=== PATIENT | female | born 1960 | race Caucasian/White ===

== ENCOUNTER 2020-12-12 12:43 | Outpatient (CLI) | payer OTHER | END 2020-12-12 23:59 | disposition home or self-care (01) | LOC: LAB.N 12:43 | PROVIDERS: ATTEND Family Medicine | DX: R39.9 Unspecified symptoms and signs involving the genitourinary system (principal) | CPT/HCPCS: 87086 ==

== ENCOUNTER 2021-01-13 09:45 | Outpatient (CLI) | payer OTHER | END 2021-01-13 23:59 | LOC: LAB.N 09:45 | PROVIDERS: ATTEND Family Medicine | DX: R39.9 Unspecified symptoms and signs involving the genitourinary system (principal) | CPT/HCPCS: 87086; 87181 ==

== ENCOUNTER 2021-05-11 12:22 | Emergency (ER) | payer OTHER ==
[2021-05-11] MEDS ORDERED: SODIUM CHLORIDE 0.9% 1,000 ML IV STA ×2 (12:52→13:53)
--- NOTE | 2021-05-11 12:54 | ED Physician Documentation ---
PD HPI NVD - Stated complaint Stated Complaint: RAPID HEART RATE - Chief complaint Chief Complaint: Cardiac - History obtained from History obtained from: Patient - History of Present Illness Timing - onset: Last night Timing - duration: Hours Timing - details: Gradual onset, Still present Associated symptoms: Abdominal pain, Near syncope / syncope Contributing factors: Bad food Improved by: BM Similar symptoms before: Has not had sx before Recently seen: Not recently seen - Additonal information Additional information: 61-year-old female with a history of frequent urinary tract infections has developed a feeling of illness yesterday afternoon and despite preparing a nice meal she did not feel like eating. She subsequently developed some nausea without vomiting and then she tried to drink a protein shake and she began to have severe diarrhea. She has had diarrhea all night long. She is feeling like she might pass out. She has come to the emerge department for evaluation. She has been on a course of antibiotic within the past 2 months. She states that she has had Ishmael and had been on extended course of antibiotic in March. She was on Cipro. Review of Systems Constitutional: denies: Fever Eyes: denies: Decreased vision Ears: denies: Ear pain Nose: denies: Congestion Throat: denies: Sore throat Cardiac: denies: Chest pain / pressure, Palpitations Respiratory: denies: Dyspnea, Cough GI: reports: Abdominal Pain, Nausea, Diarrhea. denies: Vomiting : denies: Dysuria, Frequency PD PAST MEDICAL HISTORY - Present Medications Home Medications: Ambulatory Orders Medication Instructions Recorded Confirmed Ondansetron Odt [Zofran] 4 mg TL Q6H PRN #10 tablet 05/11/21 - Allergies Allergies/Adverse Reactions: Allergies Allergy/AdvReac Type Severity Reaction Status Date / Time Penicillins Allergy Emesis Verified 05/11/21 12:30 PD ED PE NORMAL - Vitals Vital signs reviewed: Yes (hypertensive) - General General: Alert and oriented X 3, No acute distress, Well developed/nourished - HEENT HEENT: Atraumatic, PERRL, EOMI - Neck Neck: Supple, no meningeal sign, No bony TTP - Cardiac Cardiac: RRR, No murmur - Respiratory Respiratory: No respiratory distress, Clear bilaterally - Abdomen Abdomen: Normal bowel sounds, Soft, Non distended, No organomegaly, Other (RUQ and epigastric tenderness to palpation without garding. 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, No motor deficit, No sensory deficit, Normal speech Eye Opening: Spontaneous Motor: Obeys Commands Verbal: Oriented GCS Score: 15 - Psych Psych: Normal mood, Normal affect Results - Vitals Vitals: Vital Signs - 24 hr 05/11/21 05/11/21 05/11/21 12:26 14:30 15:36 Temperature 36.4 C L Heart Rate 97 64 61 Respiratory 22 17 16 Rate Blood Pressure 133/104 H 151/67 H 113/71 O2 Saturation 100 100 97 Oxygen O2 Source Room air - EKG (time done) 1241 Rate: Rate (enter#) (77) Rhythm: NSR, Other (PVC's) Ischemia: Normal ST segments Compare to prior EKG: Old EKG unavailable Computer interpretation: Agree with computer - Labs Labs: Laboratory Tests 05/11/21 05/11/21 05/11/21 12:59 13:00 13:09 WBC 6.9 RBC 5.16 Hgb 16.5 H Hct 46.9 MCV 90.9 MCH 32.0 H MCHC 35.2 RDW 13.1 Plt Count 265 MPV 9.2 Neut # (Auto) 3.6 Lymph # (Auto) 2.4 [place] # (Auto) 0.8 Eos # (Auto) 0.1 Baso # (Auto) 0.0 Absolute Nucleated RBC 0.00 Nucleated RBC % 0.0 Sodium 134 L Potassium 3.7 Chloride 97 L Carbon Dioxide 23 Anion Gap 14.0 H BUN 23 H Creatinine 1.0 Estimated GFR (MDRD) 56 L Glucose 104 H Calcium 9.4 Total Bilirubin 1.1 H AST 24 ALT 20 Alkaline Phosphatase 66 Total Protein 8.2 Albumin 4.6 Globulin 3.6 Albumin/Globulin Ratio 1.3 Lipase 37 Urine Color DARK YELLOW Urine Clarity HAZY Urine pH 5.5 Ur Specific [place] 1.025 Urine Protein 30 H Urine Glucose (UA) NEGATIVE Urine Ketones 15 H Urine Occult Blood MODERATE H Urine Nitrite NEGATIVE Urine Bilirubin NEGATIVE Urine Urobilinogen 0.2 (NORMAL) Ur Leukocyte Esterase SMALL H Urine RBC 0-5 Urine WBC 11-25 H Urine WBC Clumps PRESENT Ur Squamous Epith Cells FEW Squamous Urine Bacteria Few Ur Microscopic Review INDICATED Urine Culture Comments INDICATED Stl C. diff Tox B Gene 05/11/21 15:44 WBC RBC Hgb Hct MCV MCH MCHC RDW Plt Count MPV Neut # (Auto) Lymph # (Auto) [place] # (Auto) Eos # (Auto) Baso # (Auto) Absolute Nucleated RBC Nucleated RBC % Sodium Potassium Chloride Carbon Dioxide Anion Gap BUN Creatinine Estimated GFR (MDRD) Glucose Calcium Total Bilirubin AST ALT Alkaline Phosphatase Total Protein Albumin Globulin Albumin/Globulin Ratio Lipase Urine Color Urine Clarity Urine pH Ur Specific [place] Urine Protein Urine Glucose (UA) Urine Ketones Urine Occult Blood Urine Nitrite Urine Bilirubin Urine Urobilinogen Ur Leukocyte Esterase Urine RBC Urine WBC Urine WBC Clumps Ur Squamous Epith Cells Urine Bacteria Ur Microscopic Review Urine Culture Comments Stl C. diff Tox B Gene NEGATIVE Procedures - IVC sono (time) 1248 Bedside IVC sono: IVC measures (cm) (0.8), Dehydration (est 2-3 liter deficit) PD MEDICAL DECISION MAKING - ED course Complexity details: reviewed old records, reviewed results, re-evaluated patient, considered differential, d/w patient ED course: 61-year-old female has developed an acute gastroenteritis with excessive diarrhea has been on a course of antibiotic with the past 2 months and she has nonbloody diarrhea. She was unable to produce a specimen here in the emergency department. I did discuss with the patient the possibility of C. difficile and she will provide a specimen when she is able. She did have pyuria today but states that she does not have her typical symptoms of bladder infection which she states are very recognizable to her. For this reason we have not treated. She was administered intravenous saline with marked improvement she felt further improvement with the use of Zofran. Departure - Departure Disposition: 01 Home, Self Care Clinical Impression: Gastroenteritis, Dehydration Condition: Stable Instructions: ED Dehydration, ED Gastroenteritis Vs Food Poison Follow-Up: ALEXIS DE JESUS ARNP [Primary Care Provider] - Prescriptions: Ondansetron Odt [Zofran] 4 mg TL Q6H PRN #10 tablet PRN Reason: Nausea / Vomiting Comments: Urvashi today it looks like you have an acute gastroenteritis and this may be related to a food poisoning or irritation from specific food. If you continue to have diarrhea please obtain a specimen to bring to the lab. Today on your urinalysis there are some white blood cells in the urine and this will be cultured. Because you are not having symptoms we are not going to treat today with antibiotic. If you develop symptoms follow-up immediately with your primary care doctor for treatment. I have E scribed a prescription for Zofran to the community pharmacy here in [place]. Discharge Date/Time: 05/11/21 15:49
[2021-05-11 12:59] LABS: BASOPHILS % (AUTO) 0.3 %; EOSINOPHILS # (AUTO) 0.1 10^3/uL (0.0-0.7); EOSINOPHILS % (AUTO) 1.5 %; HCT - HEMATOCRIT 46.9 % (37.0-47.0); HGB - HEMOGLOBIN 16.5 g/dL (12.0-16.0); LYMPHOCYTES # (AUTO) 2.4 10^3/uL (1.5-3.5); LYMPHOCYTES % (AUTO) 34.5 %; MEAN CORPUSCULAR HGB CONC 35.2 g/dL (32.0-36.0); MEAN CORPUSCULAR VOLUME 90.9 fL (81.0-99.0); MEAN PLATELET VOLUME 9.2 fL (7.9-10.8); MONOCYTES # (AUTO) 0.8 10^3/uL (0.0-1.0); MONOCYTES % (AUTO) 11.6 %; NEUTROPHILS # (AUTO) 3.6 10^3/uL (1.5-6.6); NEUTROPHILS % (AUTO) 51.8 %; PLT - PLATELET COUNT 265 10^3/uL (130-450); RED BLOOD COUNT 5.16 10^6/uL (4.20-5.40); RED CELL DISTRIBUTION WIDTH 13.1 % (12.0-15.0); WHITE BLOOD COUNT 6.9 x10^3/uL (4.8-10.8)
[2021-05-11] MEDS ORDERED: ONDANSETRON 4 MG/2 ML VIAL IVP STA (13:07)
[2021-05-11] MEDS ORDERED: MORPHINE 2 MG/ML CARPUJECT IVP STA (13:07)
[2021-05-11 13:09] LABS: ALBUMIN 4.6 g/dL (3.2-5.5); ALBUMIN/GLOBULIN RATIO 1.3 (1.0-2.2); BILIRUBIN,TOTAL 1.1 mg/dL (0.2-1.0); CALCIUM 9.4 mg/dL (8.5-10.3); POTASSIUM 3.7 mmol/L (3.5-5.0); TOTAL PROTEIN 8.2 g/dL (6.7-8.2)
[2021-05-11 13:14] LABS: BILIRUBIN,URINE NEGATIVE (NEGATIVE); GLUCOSE, URINE (UA) NEGATIVE (NEGATIVE); KETONES,URINE (UA) 15 mg/dL (NEGATIVE); LEUKOCYTE ESTERASE, URINE SMALL (NEGATIVE); NITRITE,URINE NEGATIVE (NEGATIVE); OCCULT BLOOD,URINE MODERATE (NEGATIVE); PH,URINE 5.5 PH (5.0-7.5); PROTEIN,URINE 30 mg/dL (NEGATIVE); UROBILINOGEN,URINE 0.2 (NORMAL) E.U./dL (NORMAL)
[2021-05-11 13:16] LABS: CLARITY,URINE HAZY (CLEAR)
[2021-05-11 13:18] LABS: BACTERIA,URINE Few /HPF (None Seen); RBC,URINE 0-5 /HPF (0-5); SQUAMOUS EPITHELIAL CELL,UR FEW Squamous (<= Few); WBC CLUMPS,URINE PRESENT
[2021-05-11 15:37] VITALS: BP 113/71
[2021-05-11] MEDS ORDERED: ONDANSETRON ODT 4 MG TABLET TL STA (15:41)
== END 2021-05-11 15:49 | disposition home or self-care (01) ==
LOC: ED 12:22
DX: K52.9 Noninfective gastroenteritis and colitis, unspecified (principal); E86.0 Dehydration
CPT/HCPCS: 36415; 80053; 81001; 81599; 83690; 85025; 87086; 87493; 93005; 96361; 96374; 96375; 99283; 99284; Q0162; 81003; 87045; 87046; 87077; 87181

== ENCOUNTER 2021-05-16 15:04 | Emergency (ER) | payer OTHER ==
[2021-05-16] MEDS ORDERED: SODIUM CHLORIDE 0.9% 1,000 ML IV STA (15:35)
[2021-05-16] MEDS ORDERED: ONDANSETRON 4 MG/2 ML VIAL IVP STA (15:35)
[2021-05-16] MEDS ORDERED: LORazepam 2 MG/ML VIAL IVP STA (15:35)
[2021-05-16] MEDS ORDERED: CIPROFLOXACIN 400 MG/200 ML 400 MG/200 ML BAG IV STA (15:37)
--- NOTE | 2021-05-16 15:38 | ED Physician Documentation ---
History of Present Illness - Stated complaint Stated Complaint: UNABLE TO EAT - Chief complaint Chief Complaint: General - History obtained from History obtained from: Patient - Additonal information Additional information: 61-year-old woman with anxiety related to perioperative cardiac arrests when she had her hysterectomy, history of gallbladder disease has been sick for 8 days. Started with severe abdominal pain and diarrhea. She also has nausea with one episode of vomiting a few days ago. The diarrhea is persistent and the nausea is persistent. She is unable to eat or drink. 10 pound weight loss. 100.8 temperature on the day of outset, no fever since. Review of Systems Ten Systems: 10 systems reviewed and negative Constitutional: reports: Fever (gone) GI: reports: Abdominal Pain, Nausea, Vomiting, Diarrhea. denies: Hematemesis, Bloody / black stool PD PAST MEDICAL HISTORY - Present Medications Home Medications: Ambulatory Orders Medication Instructions Recorded Confirmed Ondansetron Odt [Zofran] 4 mg TL Q6H PRN #10 tablet 05/11/21 Ciprofloxacin HCl [Cipro] 500 mg PO BID #20 tablet 05/16/21 Loperamide [Imodium] 2 mg PO QID PRN #10 cap 05/16/21 Metoclopramide [Reglan] 10 mg PO Q6H PRN #20 tablet 05/16/21 - Allergies Allergies/Adverse Reactions: Allergies Allergy/AdvReac Type Severity Reaction Status Date / Time Penicillins Allergy Emesis Verified 05/16/21 15:08 PD ED PE NORMAL - Vitals Vital signs reviewed: Yes - General General: Alert and oriented X 3, No acute distress - HEENT HEENT: PERRL, EOMI - Neck Neck: Supple, no meningeal sign, No bony TTP - Cardiac Cardiac: RRR, No murmur - Respiratory Respiratory: No respiratory distress, Clear bilaterally - Abdomen Abdomen: Soft, Other (Hyperactive bowel tones, soft and nontender) - Back Back: No CVA TTP, No spinal TTP - Derm Derm: Normal color, Warm and dry - Extremities Extremities: No edema, No calf tenderness / cord - Neuro Neuro: Alert and oriented X 3, Normal speech Results - Vitals Vitals: Vital Signs - 24 hr 05/16/21 05/16/21 15:08 17:12 Temperature 36.5 C 36.6 C Heart Rate 110 H 67 Respiratory 20 18 Rate Blood Pressure 126/92 H 106/58 L O2 Saturation 100 100 Oxygen O2 Source Room air - Labs Labs: Laboratory Tests 05/16/21 05/16/21 05/16/21 15:48 15:48 16:01 WBC 9.2 RBC 4.83 Hgb 15.2 Hct 43.4 MCV 89.9 MCH 31.5 H MCHC 35.0 RDW 12.9 Plt Count 374 MPV 8.8 Neut # (Auto) 5.6 Lymph # (Auto) 2.7 [place] # (Auto) 0.8 Eos # (Auto) 0.1 Baso # (Auto) 0.0 Absolute Nucleated RBC 0.00 Nucleated RBC % 0.0 VBG pH 7.456 H VBG pCO2 33.1 L VBG pO2 32.9 VBG HCO3 22.8 L VBG Total CO2 23.8 L VBG O2 Saturation 72.3 VBG Base Excess -0.2 Sodium 136 Potassium 3.5 Chloride 99 L Carbon Dioxide 26 Anion Gap 11.0 BUN 10 Creatinine 1.0 Estimated GFR (MDRD) 56 L Glucose 109 H Calcium 9.2 Magnesium 1.8 Total Bilirubin 0.9 AST 19 ALT 15 Alkaline Phosphatase 56 Total Protein 7.1 Albumin 4.1 Globulin 3.0 Albumin/Globulin Ratio 1.4 Lipase 33 - Rads (name of study) CT A/P Radiology: EMP read contemporaneously (Distal small bowel anhancement c/w w ileus or enteritis. Nonobstructing R neprolithiasis.) PD MEDICAL DECISION MAKING - ED course ED course: 61-year-old woman with persistent diarrhea and nausea, fever on the first day but not since. Nontender exam. Work-up here demonstrates grossly normal blood work, CT showing enteritis. Has a known Enterococcus UTI now symptomatic and treated with Cipro after looking out sensitivities. Passed an oral challenge after above interventions. Departure - Departure Disposition: 01 Home, Self Care Clinical Impression: Dehydration, Enteritis Condition: Good Record reviewed to determine appropriate education?: Yes Instructions: ED Gastroenteritis Bacterial Prescriptions: Ciprofloxacin HCl [Cipro] 500 mg PO BID #20 tablet Loperamide [Imodium] 2 mg PO QID PRN #10 cap PRN Reason: Diarrhea Metoclopramide [Reglan] 10 mg PO Q6H PRN #20 tablet PRN Reason: nausea or headache Comments: I sent your prescriptions to [facility] at [address] Return if not better in 48 to 72 hours, anytime if worsening.
[2021-05-16 16:00] LABS: VBG BASE EXCESS -0.2 mmol/L (-2 - +2); VBG HCO3 22.8 mmol/L (23-28); VBG OXYGEN SATURATION 72.3 % (60-80); VBG PCO2 33.1 mmHg (41-51); VBG PH 7.456 (7.31-7.41); VBG PO2 32.9 mmHg (25-47); VBG TOTAL CO2 23.8 mmol/L (24-29)
[2021-05-16 16:08] LABS: ALBUMIN 4.1 g/dL (3.2-5.5); ALBUMIN/GLOBULIN RATIO 1.4 (1.0-2.2); BILIRUBIN,TOTAL 0.9 mg/dL (0.2-1.0); CALCIUM 9.2 mg/dL (8.5-10.3); MAGNESIUM 1.8 mg/dL (1.7-2.8); POTASSIUM 3.5 mmol/L (3.5-5.0); TOTAL PROTEIN 7.1 g/dL (6.7-8.2)
[2021-05-16 16:08] LABS: BASOPHILS % (AUTO) 0.3 %; EOSINOPHILS # (AUTO) 0.1 10^3/uL (0.0-0.7); EOSINOPHILS % (AUTO) 0.8 %; HCT - HEMATOCRIT 43.4 % (37.0-47.0); HGB - HEMOGLOBIN 15.2 g/dL (12.0-16.0); LYMPHOCYTES # (AUTO) 2.7 10^3/uL (1.5-3.5); LYMPHOCYTES % (AUTO) 29.1 %; MEAN CORPUSCULAR HEMOGLOBIN 31.5 pg (27.0-31.0); MEAN CORPUSCULAR VOLUME 89.9 fL (81.0-99.0); MEAN PLATELET VOLUME 8.8 fL (7.9-10.8); MONOCYTES # (AUTO) 0.8 10^3/uL (0.0-1.0); MONOCYTES % (AUTO) 9.1 %; NEUTROPHILS # (AUTO) 5.6 10^3/uL (1.5-6.6); NEUTROPHILS % (AUTO) 60.5 %; PLT - PLATELET COUNT 374 10^3/uL (130-450); RED BLOOD COUNT 4.83 10^6/uL (4.20-5.40); RED CELL DISTRIBUTION WIDTH 12.9 % (12.0-15.0); WHITE BLOOD COUNT 9.2 x10^3/uL (4.8-10.8)
[2021-05-16] MEDS ORDERED: IOVERSOL 320 100 ML VIAL IVP ONE ×2 (16:21→16:42)
--- NOTE | 2021-05-16 17:08 | CT Report ---
PROCEDURE: CT abdomen and pelvis with contrast INDICATIONS: Weakness, food poisoning CONTRAST: IV CONTRAST: Optiray 320 ml: 100 PO CONTRAST: *NO PO CONTRAST TECHNIQUE: After the administration of contrast, 5 mm thick sections acquired from the diaphragms to the sym physis. 5 mm thick coronal and sagittal reformats were acquired. For radiation dose reduction, the following was used: automated exposure control, adjustment of mA and/or kV according to patient size . COMPARISON: None. FINDINGS: Image quality: Excellent. ABDOMEN: Lung bases: Lung bases are clear. Heart size is normal. Solid organs: Liver and spleen are normal in size and enhancement. Gallbladder surgically absent. P rominent common bile duct measures up to 1.2 cm without evidence of obstructing lesion. Mild intrahep atic bile duct dilatation noted as well. Pancreas enhances normally. No adrenal nodules. Kidneys d emonstrate normal size and enhancement,. 8 mm nonobstructing right renal calculus present. There is a left renal extrarenal pelvis without hydronephrosis present bilaterally. Peritoneum and bowel: Bowel loops demonstrate normal wall thickness and caliber. No free fluid or a ir. Distal small bowel does show wall enhancement and slight fluid distention without obstruction. N ormal appendix identified. Nodes and vessels: No retroperitoneal or mesenteric adenopathy by size criteria. Aorta and inferior vena cava are normal in size. Miscellaneous: No ventral hernias. PELVIS: Genitourinary: Bladder wall thickness is normal. Miscellaneous: No inguinal hernias or adenopathy. Bones: No suspicious bony lesions. No vertebral body compression fractures. Multilevel degenerativ e disc disease and arthropathy noted lower lumbar spine without significant central stenosis. IMPRESSION: 1. Distal small bowel wall enhancement and fluid distention without obstruction probably reflects ile us or enteritis. 2. Cholecystectomy and prominent distal common bile duct measures up to 1.2 cm without evidence of ob structing lesion. 3. Nonobstructing right renal calculus. No hydronephrosis bilaterally. Reviewed by: Isak Mena MD on 05/16/2021 4:06 PM [place] Approved by: Isak Mena MD on 05/16/2021 4:06 PM [place] Station ID: [id number]
[2021-05-16 17:15] VITALS: BP 106/58
== END 2021-05-16 17:44 | disposition home or self-care (01) ==
LOC: ED 15:04
DX: E86.0 Dehydration (principal); K52.9 Noninfective gastroenteritis and colitis, unspecified; N39.0 Urinary tract infection, site not specified; B95.2 Enterococcus as the cause of diseases classified elsewhere
CPT/HCPCS: 36415; 74177; 80053; 82803; 83690; 83735; 85025; 96365; 96375; 99283; 99284; J2060; Q9967

== ENCOUNTER 2021-05-18 12:10 | Emergency (ER) | payer OTHER ==
[2021-05-18] MEDS ORDERED: SODIUM CHLORIDE 0.9% 1,000 ML IV STA ×2 (12:33→12:58)
[2021-05-18 12:49] LABS: BASOPHILS % (AUTO) 0.3 %; EOSINOPHILS % (AUTO) 2.2 %; HCT - HEMATOCRIT 40.5 % (37.0-47.0); HGB - HEMOGLOBIN 14.4 g/dL (12.0-16.0); MEAN CORPUSCULAR HEMOGLOBIN 32.2 pg (27.0-31.0); MEAN CORPUSCULAR HGB CONC 35.6 g/dL (32.0-36.0); MEAN CORPUSCULAR VOLUME 90.6 fL (81.0-99.0); MEAN PLATELET VOLUME 8.7 fL (7.9-10.8); MONOCYTES % (AUTO) 9.4 %; NEUTROPHILS % (AUTO) 61.8 %; PLT - PLATELET COUNT 350 10^3/uL (130-450); RED BLOOD COUNT 4.47 10^6/uL (4.20-5.40); RED CELL DISTRIBUTION WIDTH 12.9 % (12.0-15.0); WHITE BLOOD COUNT 9.6 x10^3/uL (4.8-10.8)
[2021-05-18 12:54] LABS: ABNORMAL LYMPHS % (MANUAL) 0 %; BAND NEUTROPHILS % (MANUAL) 0 %
[2021-05-18] MEDS ORDERED: LORazepam 2 MG/ML VIAL IVP STA (12:58)
[2021-05-18] MEDS ORDERED: PROMETHAZINE INJ 25 MG in SODIUM CHLORIDE 0.9% 50 ML IV STA (12:58)
--- NOTE | 2021-05-18 13:01 | ED Physician Documentation ---
History of Present Illness - Stated complaint Stated Complaint: NAUSEA/NOT EATING - Chief complaint Chief Complaint: Abd Pain - History obtained from History obtained from: Patient - History of Present Illness Timing: How many weeks ago (1) Pain level max: 5 Pain level now: 4 - Additonal information Additional information: Patient is a 61-year-old female who presents to the emergency department with diarrhea for the past 11 days. She states she has had vomiting as well. She states initially was thought to be food poisoning, then thought to be bacterial versus viral enteritis. Negative C. difficile test at last visit. Did have a UTI, possible pyelonephritis and was started on ciprofloxacin, but she has been unable to tolerate the oral IV medications at home. She states that she has had an 11 pound weight loss in the last 11 days. Worse with attempting to eat and drink, nothing makes it better. She states that the Zofran and Reglan are not helping. She states that she rarely drinks alcohol, uses marijuana about once per month. Denies any smoking or vaping. No recent travel. Review of Systems Constitutional: reports: Fever (day 1, none since). 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 - Present Medications Home Medications: Ambulatory Orders Medication Instructions Recorded Confirmed Ondansetron Odt [Zofran] 4 mg TL Q6H PRN #10 tablet 05/11/21 Ciprofloxacin HCl [Cipro] 500 mg PO BID #20 tablet 05/16/21 Loperamide [Imodium] 2 mg PO QID PRN #10 cap 05/16/21 Metoclopramide [Reglan] 10 mg PO Q6H PRN #20 tablet 05/16/21 LORazepam [Ativan] 1 mg PO Q8H PRN #10 tablet 05/18/21 Promethazine Supp [Phenergan Supp] 25 mg [place] Q6H PRN #20 supp 05/18/21 - Allergies Allergies/Adverse Reactions: Allergies Allergy/AdvReac Type Severity Reaction Status Date / Time Penicillins Allergy Emesis Verified 05/18/21 12:19 - Living Situation Living Situation: reports: With family Living Arrangement: reports: At home - Social History Does the pt smoke?: No Does the pt drink ETOH?: Yes ETOH Use: Wine Does the pt have substance abuse?: Yes Substance Use and Type: Marijuana (1 x per month) - Family History Family history: reports: Non contributory PD ED PE NORMAL - Vitals Vital signs reviewed: Yes - General General: Alert and oriented X 3, No acute distress, Well developed/nourished - HEENT HEENT: PERRL, Other (dry lips and tongue) - Neck Neck: Supple, no meningeal sign - Cardiac Cardiac: RRR, Strong equal pulses - Respiratory Respiratory: No respiratory distress, Clear bilaterally - Abdomen Abdomen: Soft, Non tender, Non distended - Derm Derm: Warm and dry, No rash - Extremities Extremities: No edema, No calf tenderness / cord - Neuro Neuro: Alert and oriented X 3 - Psych Psych: Normal mood, Normal affect Results - Vitals Vitals: Vital Signs - 24 hr 05/18/21 05/18/21 05/18/21 12:13 13:46 15:00 Temperature 36.2 C L Heart Rate 86 74 86 Respiratory 20 18 17 Rate Blood Pressure 97/74 128/93 H 134/99 H O2 Saturation 98 96 96 05/18/21 16:30 Temperature 36.3 C L Heart Rate 84 Respiratory 13 Rate Blood Pressure 110/76 O2 Saturation 96 Oxygen O2 Source Room air - Labs Labs: Laboratory Tests 05/18/21 05/18/21 05/18/21 12:42 12:42 13:20 WBC 9.6 RBC 4.47 Hgb 14.4 Hct 40.5 MCV 90.6 MCH 32.2 H MCHC 35.6 RDW 12.9 Plt Count 350 MPV 8.7 Neut # (Auto) Not Reportable Lymph # (Auto) Not Reportable [place] # (Auto) Not Reportable Eos # (Auto) Not Reportable Baso # (Auto) Not Reportable Absolute Nucleated RBC Not Reportable Total Counted 100 Band Neuts % (Manual) 0 Abnorm Lymph % (Manual) 0 Nucleated RBC % Not Reportable Neutrophils # (Manual) 6.2 Lymphocytes # (Manual) 2.5 Monocytes # (Manual) 0.8 Eosinophils # (Manual) 0.1 Basophils # (Manual) 0.0 Differential Comment MANUAL DIFFERENTIAL Platelet Estimate NORMAL (130-450,000) Platelet Morphology NORMAL APPEARANCE RBC Morph Micro Appear NORMAL APPEARANCE Sodium 135 Potassium 3.4 L Chloride 100 L Carbon Dioxide 22 Anion Gap 13.0 BUN 8 Creatinine 1.0 Estimated GFR (MDRD) 56 L Glucose 96 Calcium 8.9 Total Bilirubin 0.9 AST 15 ALT 12 Alkaline Phosphatase 52 Total Protein 6.4 L Albumin 3.8 Globulin 2.6 Albumin/Globulin Ratio 1.5 Lipase 40 Urine Color DARK YELLOW Urine Clarity CLEAR Urine pH 6.0 Ur Specific [place] >=1.030 H Urine Protein 30 H Urine Glucose (UA) NEGATIVE Urine Ketones 15 H Urine Occult Blood TRACE-INTA Urine Nitrite NEGATIVE Urine Bilirubin NEGATIVE Urine Urobilinogen 0.2 (NORMAL) Ur Leukocyte Esterase NEGATIVE Urine RBC 0-5 Urine WBC 6-10 H Ur Squamous Epith Cells FEW Squamous Urine Bacteria Few Ur Microscopic Review INDICATED Urine Culture Comments NOT INDICATED PD MEDICAL DECISION MAKING - ED course Complexity details: reviewed old records, reviewed results, re-evaluated patient, considered differential, d/w patient ED course: Patient is well-appearing, nontoxic. Afebrile. Given Ativan, Phenergan and droperidol. She is tolerating p.o. well here. She would like to try oral Ativan for home as well as rectal Phenergan for nausea and/or vomiting. Her prior ED visits were reviewed. CT scan showed a mild enteritis. Her C. difficile studies were negative. Her stool cultures were negative. Likely viral gastroenteritis. Recommend that she follow-up with GI if her symptoms continue. Patient counseled regarding signs and symptoms for which I believe and urgent re-evaluation would be necessary. Patient with good understanding of and agreement to plan and is comfortable going home at this time This document was made in part using voice recognition software. While efforts are made to proofread this document, sound alike and grammatical errors may occur. Departure - Departure Disposition: 01 Home, Self Care Clinical Impression: Acute gastroenteritis Condition: Good Instructions: ED Gastroenteritis Viral Follow-Up: ALEXIS DE JESUS ARNP [Primary Care Provider] - Within 1 week Prescriptions: LORazepam [Ativan] 1 mg PO Q8H PRN #10 tablet PRN Reason: anxiety Promethazine Supp [Phenergan Supp] 25 mg [place] Q6H PRN #20 supp PRN Reason: nausea/vomiting Comments: Your prescriptions were sent to the [facility] pharmacy. Please follow-up with your doctor for further care. Return if you worsen. Drink plenty of fluids and rest. Your C. difficile and stool cultures are negative. Discharge Date/Time: 05/18/21 16:59
[2021-05-18 13:04] LABS: ALBUMIN 3.8 g/dL (3.2-5.5); ALBUMIN/GLOBULIN RATIO 1.5 (1.0-2.2); BILIRUBIN,TOTAL 0.9 mg/dL (0.2-1.0); CALCIUM 8.9 mg/dL (8.5-10.3); POTASSIUM 3.4 mmol/L (3.5-5.0); TOTAL PROTEIN 6.4 g/dL (6.7-8.2)
[2021-05-18 13:18] LABS: DIFFERENTIAL COMMENT MANUAL DIFFERENTIAL; EOSINOPHILS # (MANUAL) 0.1 10^3/uL (0-0.7); LYMPHOCYTES # (MANUAL) 2.5 10^3/uL (1.5-3.5); LYMPHOCYTES % (MANUAL) 26 %; MONOCYTES # (MANUAL) 0.8 10^3/uL (0.0-1.0); NEUTROPHILS # (MANUAL) 6.2 10^3/uL (1.5-6.6); PLATELET ESTIMATE, MANUAL NORMAL (130-450,000) (NORMAL); PLATELET MORPHOLOGY NORMAL APPEARANCE (NORMAL); RBC MORPHOLOGY (MULTIPLE) NORMAL APPEARANCE (NORMAL)
[2021-05-18 13:31] LABS: GLUCOSE, URINE (UA) NEGATIVE (NEGATIVE); KETONES,URINE (UA) 15 mg/dL (NEGATIVE); LEUKOCYTE ESTERASE, URINE NEGATIVE (NEGATIVE); NITRITE,URINE NEGATIVE (NEGATIVE); OCCULT BLOOD,URINE TRACE-INTA (NEGATIVE); PROTEIN,URINE 30 mg/dL (NEGATIVE); UROBILINOGEN,URINE 0.2 (NORMAL) E.U./dL (NORMAL)
[2021-05-18 13:32] LABS: CLARITY,URINE CLEAR (CLEAR)
[2021-05-18 13:36] LABS: BILIRUBIN,URINE NEGATIVE (NEGATIVE); ICTOTEST,URINE NEGATIVE
[2021-05-18 13:39] LABS: BACTERIA,URINE Few /HPF (None Seen); RBC,URINE 0-5 /HPF (0-5); SQUAMOUS EPITHELIAL CELL,UR FEW Squamous (<= Few)
[2021-05-18] MEDS ORDERED: CIPROFLOXACIN 400 MG/200 ML 400 MG/200 ML BAG IV STA (13:44)
[2021-05-18] MEDS ORDERED: DROPERIDOL 5 MG/2 ML VIAL IVP STA (15:32)
[2021-05-18 16:35] VITALS: BP 110/76
== END 2021-05-18 16:59 | disposition home or self-care (01) ==
LOC: ED 12:10
DX: K52.9 Noninfective gastroenteritis and colitis, unspecified (principal)
CPT/HCPCS: 36415; 80053; 81001; 81599; 83690; 85025; 96365; 96367; 96375; 99282; 99285; J2060; J7040; 81003; 87045; 87046; 87081; 87086

== ENCOUNTER 2021-08-25 18:42 | Outpatient (CLI) | payer OTHER | END 2021-08-25 18:43 | disposition critical access hospital (66) | LOC: EMS 18:42 | DX: M54.2 Cervicalgia (principal); F41.9 Anxiety disorder, unspecified | CPT/HCPCS: A0425; A0429 ==

== ENCOUNTER 2021-08-25 18:48 | Emergency (ER) | payer OTHER ==
--- OUTSIDE RECORDS SUMMARY | 2021-08-25 19:15 | EXTERNAL MEDICAL SUMMARY RPT | Continuity of Care Document ---
:1960 Author Organization [facility] Address [address] [place] [address] Phone Care Team Providers Name Role Phone MD Unavailable Unavailable Allergies No information. Encounters No information. Medications date description facility [id number] gabapentin [facility] [place] [id number] prednisone [facility] [id number] baclofen [facility] Problems date description facility [id number] Strain of muscle and tendon of back [facility] wall of thorax, initial encounter [facility] [place] [id number] Strain of left trapezius muscle [facility] [id number] Radiculopathy, cervical region [facility] [id number] Never smoker [facility] [id number] Details of drug misuse behavior [facility] [id number] Cervical radiculopathy [facility] [id number] Brachial neuritis or radiculitis [facility] 20210809 Alcohol use [facility] [id number] Neck pain [facility] 20210805 Dorsalgia, unspecified [facility] [id number] Cervicalgia [facility] 20210805 Backache, unspecified [facility] [id number] Backache [facility] [id number] Medical Problem (Re-evaluation) [facility] [employer] Procedures date description facility [id number] Med Administration ([id number]) [facility] C timoteo Results No information. Vital Signs date measurement value source 20210809 weight_standard 166 lb 20210809 weight_metric 75.3 kg 20210809 temperature_standard 97.7 F 20210809 temperature_metric 36.5 C 20210809 respiration_rate 16 /min 20210809 height_standard 70.5 in 20210809 height_metric 179.07 cm 20210809 heart_rate 67 /min 20210809 BP_systolic 152 mm[Hg] 20210809 BP_diastolic 96 mm[Hg] 20210809 BMI 23.57 kg/m2
[2021-08-25] MEDS ORDERED: HYDROmorphone 1 MG/ML CARPUJECT IM STA (19:20)
--- NOTE | 2021-08-25 19:22 | ED Physician Documentation ---
History of Present Illness - Stated complaint Stated Complaint: NECK PX - Chief complaint Chief Complaint: Trauma Hd/Nk - History obtained from History obtained from: Patient - History of Present Illness Pain level max: 9 Pain level now: 8 - Additonal information Additional information: 61-year-old female presents to the emergency department complaining of neck pain for the past 3 weeks. She states it started after gardening. Worse with movement, nothing makes it better. She states she has physical therapy scheduled for tomorrow. She states that she has taken meloxicam with no relief of the pain. The pain radiates down the left arm and the left hand. Has occasional tingling to the left hand. No chest pain. No back pain. No headache. She denies any fall or trauma. She states that she is going to be scheduled for an MRI but this has not happened yet. She states that she lives at home alone as her is out of town. She is able to get up, use the restroom, feed herself and dress herself. No loss of bowel or bladder control. 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 - Present Medications Home Medications: Ambulatory Orders Medication Instructions Recorded Confirmed Ondansetron Odt [Zofran] 4 mg TL Q6H PRN #10 tablet 05/11/21 Ciprofloxacin HCl [Cipro] 500 mg PO BID #20 tablet 05/16/21 Loperamide [Imodium] 2 mg PO QID PRN #10 cap 05/16/21 Metoclopramide [Reglan] 10 mg PO Q6H PRN #20 tablet 05/16/21 LORazepam [Ativan] 1 mg PO Q8H PRN #10 tablet 05/18/21 Promethazine Supp [Phenergan Supp] 25 mg AL Q6H PRN #20 supp 05/18/21 HYDROcod/ACETAM 5/325 [[place] 5/325] 1 - 2 ea PO Q6H PRN #14 tablet 08/25/21 LORazepam [Ativan] 1 mg PO Q8H PRN #10 tablet 08/25/21 Promethazine [Phenergan] 25 mg PO Q6H PRN #10 tab 08/25/21 - Allergies Allergies/Adverse Reactions: Allergies Allergy/AdvReac Type Severity Reaction Status Date / Time Penicillins Allergy Emesis Verified 08/25/21 19:03 - Social History Does the pt smoke?: No Does the pt drink ETOH?: Yes Does the pt have substance abuse?: Yes PD ED PE NORMAL - Vitals Vital signs reviewed: Yes - General General: Alert and oriented X 3, Well developed/nourished, Other (Appears quite anxious, tearful) - HEENT HEENT: Atraumatic, PERRL, Moist mucous membranes - Neck Neck: Supple, no meningeal sign, No bony TTP, No JVD, No bruit - Cardiac Cardiac: RRR, Strong equal pulses - Respiratory Respiratory: No respiratory distress, Clear bilaterally - Abdomen Abdomen: Soft, Non tender, Non distended - Back Back: No spinal TTP - Derm Derm: Warm and dry - Extremities Extremities: No edema, No calf tenderness / cord - Neuro Neuro: Alert and oriented X 3, No motor deficit, No sensory deficit - Psych Psych: Normal mood, Normal affect - Free text exam Free text exam: Full range of motion of the neck, though patient states she has pain. No midline tenderness. No neurological deficits. Results - Vitals Vitals: Vital Signs - 24 hr 08/25/21 08/25/21 08/25/21 18:57 19:42 21:17 Temperature 37 C Heart Rate 83 90 90 Respiratory 22 24 22 Rate Blood Pressure 143/129 H 135/111 H O2 Saturation 97 95 99 08/25/21 08/25/21 21:42 21:43 Temperature 37 C Heart Rate 70 74 Respiratory 20 Rate Blood Pressure 135/102 H O2 Saturation 97 Oxygen O2 Source Room air - Rads (name of study) CT cervical spine Radiology: Final report received, EMP read contemporaneously, See rad report PD MEDICAL DECISION MAKING - ED course Complexity details: reviewed results, re-evaluated patient, considered differential, d/w patient ED course: 61-year-old female presents to the emergency department with neck pain. She is moving her neck freely during the history. Does have pain on physical exam with movement. Using both arms freely as well. Pain well controlled. Appears to have a lot of anxiety. We will trial on pain medication for home. She has a physical therapy appointment in the morning. Recommend that she follow-up closely with her doctor for further care. She does have severe facet arthropathy in the mid cervical spine and extensive multilevel degenerative changes in the cervical spine. Patient counseled regarding signs and symptoms for which I believe and urgent re-evaluation would be necessary. Patient with good understanding of and agreement to plan and is comfortable going home at this time This document was made in part using voice recognition software. While efforts are made to proofread this document, sound alike and grammatical errors may occur. IMPRESSION: 1. No fracture or subluxation. 2. Extensive multilevel degenerative changes in the cervical spine including severe facet arthropathy in the mid cervical spine. Departure - Departure Disposition: Home, Self Care Clinical Impression: Cervical radiculopathy Condition: Good Instructions: ED Cervical Radiculopathy Follow-Up: ALEXIS DE JESUS ARNP [Primary Care Provider] - Within 3 Days Prescriptions: LORazepam [Ativan] 1 mg PO Q8H PRN #10 tablet PRN Reason: Anxiety HYDROcod/ACETAM 5/325 [[place] 5/325] 1 - 2 ea PO Q6H PRN #14 tablet PRN Reason: Pain Promethazine [Phenergan] 25 mg PO Q6H PRN #10 tab PRN Reason: Nausea / Vomiting Comments: Your prescriptions were sent to the [facility] pharmacy. Please follow-up with your doctor for further care. You should also discuss with your doctor medication to help with anxiety. Please follow-up with physical therapy tomorrow as directed. I am prescribing a short course of narcotic pain medication for you. These are potentially dangerous and addictive medications that should be used carefully. These medications may constipate you. Take an [id number] stool softener (docusate) twice daily with plenty of water while taking these medications. If you go 24 hours without a bowel movement, take [id number] miralax, per package instructions. Do not drink or drive while taking these medications. If you received narcotic or sedating medications while in the emergency department, do not drive for 24 hours. Store this medication in a safe, secure place and out of reach of children. It is a violation of federal law to give or sell this medication to another person or to use in a manner other than prescribed. The ED will not refill narcotic prescriptions, including prescriptions lost or stolen. To dispose of unwanted medications: 1. [facility] at [address] in [place] has a medication drop box. They accept prescription medications (in pill form) Sunday through Sunday 9:00 a.m. to 5:00 p.m. 2. The [facility] accepts prescription medications (in pill form only) for disposal year round. Call for more information. 3. Contact the [facility] for the next [employer] sponsored prescription drug collection event. , [phone], or [phone]; CT scan cervical spine IMPRESSION: 1. No fracture or subluxation. 2. Extensive multilevel degenerative changes in the cervical spine including severe facet arthropathy in the mid cervical spine. Discharge Date/Time: 08/25/21 21:43
[2021-08-25] MEDS ORDERED: HYDROmorphone 1 MG/ML CARPUJECT IVP STA (19:44)
[2021-08-25] MEDS ORDERED: PROMETHAZINE INJ 25 MG in SODIUM CHLORIDE 0.9% 50 ML IV STA (21:00)
--- NOTE | 2021-08-25 21:03 | CT Report ---
PROCEDURE: CERVICAL SPINE WO INDICATIONS: neck pain x 3 weeks after gardening TECHNIQUE: Noncontrast 3 mm thick sections acquired from the skull base to the T4 level. Sagittal and coronal r eformats were then constructed. For radiation dose reduction, the following was used: automated exp osure control, adjustment of mA and/or kV according to patient size. COMPARISON: None. FINDINGS: Image quality: Excellent. Bones: No fractures or subluxation. There is straightening the cervical lordosis. Minimal anterolist hesis demonstrated at C4-C5 and minimal retrolisthesis demonstrated at C5-C6. There is multilevel deg enerative disc disease including moderate severe degeneration at C5-C6 and moderate degeneration at C 6-C7. Multilevel facet arthropathy also demonstrated including severe degeneration in the mid cervica l spine with fusion on the left at C3-C4. Visualized superior ribs are intact. Soft tissues: Prevertebral soft tissues are normal in thickness. No paravertebral hematomas. No ap ical pneumothoraces. IMPRESSION: 1. No fracture or subluxation. 2. Extensive multilevel degenerative changes in the cervical spine including severe facet arthropathy in the mid cervical spine. Reviewed by: Noe Thao MD on 08/25/2021 9:02 PM PDT Approved by: Noe Thao MD on 08/25/2021 9:02 PM PDT Station ID: [id number]
[2021-08-25] MEDS ORDERED: PROMETHAZINE 25 MG/1 ML VIAL ONE (21:19)
[2021-08-25 21:43] VITALS: BP 135/102
== END 2021-08-25 21:43 | disposition home or self-care (01) ==
LOC: EDUNIT# → ED 18:48
DX: M54.12 Radiculopathy, cervical region (principal)
CPT/HCPCS: 36415; 72125; 96365; 96375; 99284; J1170; J7040

== ENCOUNTER 2021-09-10 02:53 | Outpatient (CLI) | payer OTHER | END 2021-09-10 02:54 | disposition left against medical advice (07) | LOC: EMS 02:53 | DX: M54.2 Cervicalgia (principal) ==

== ENCOUNTER 2021-09-10 09:44 | Outpatient (CLI) | payer OTHER | END 2021-09-10 09:45 | disposition critical access hospital (66) | LOC: EMS 09:44 | DX: M54.2 Cervicalgia (principal) | CPT/HCPCS: A0425; A0429 ==

== ENCOUNTER 2021-09-12 11:38 | Outpatient (CLI) | payer OTHER | END 2021-09-12 11:39 | disposition EMS.NT | LOC: EMS 11:38 | DX: M54.2 Cervicalgia (principal) ==

== ENCOUNTER 2022-03-01 09:25 | Day surgery (SDC) | payer OTHER ==
[2022-03-01] MEDS ORDERED: LACTATED RINGERS 1,000 ML IV ONE (09:59)
[2022-03-01] MEDS ORDERED: ONDANSETRON 4 MG/2 ML VIAL ONE (10:23)
--- NOTE | 2022-03-01 10:35 | ANESTHESIA ---
Pre-Anesthesia VS, & Labs - Diagnosis screening - Procedure colonoscopy Vital Signs: Temp Pulse Resp BP Pulse Ox O2 Flow Rate 36.2 C L 71 16 139/97 H 97 0 03/01/22 09:37 03/01/22 09:37 03/01/22 09:37 03/01/22 09:37 03/01/22 09:37 03/01/22 09:37 Height: 5 ft 10.5 in Weight (kg): 77.2 kg Body Mass Index: 24.0 BMI Classification: Normal - NPO >8 hours - Is Patient ?: No Home Medications and Allergies Home Medications: Ambulatory Orders Levothyroxine [Synthroid] 25 mcg PO QDAC 03/01/22 Liothyronine [Cytomel] 5 mcg PO QDAC 03/01/22 Losartan [Cozaar] 50 mg PO DAILY 03/01/22 Levothyroxine [Synthroid] 25 mcg PO QDAC 03/01/22 Liothyronine [Cytomel] 5 mcg PO QDAC 03/01/22 Losartan [Cozaar] 50 mg PO DAILY 03/01/22 Allergies/Adverse Reactions: Allergies Allergy/AdvReac Type Severity Reaction Status Date / Time Penicillins Allergy Emesis Verified 08/25/21 19:03 Anes History & Medical History - Anesthetic History Anesthesia Complications: reports: No previous complications - Medical History Cardiovascular: reports: None Pulmonary: reports: None Neuro: reports: None Musculoskeletal: reports: Chronic back pain Endocrine/Autoimmune: reports: None Smoking Status: Never smoker Psychosocial: reports: Alcohol (rare), Cannabis History of Cancer?: No - Surgical History General: reports: Cholecystectomy, Colonoscopy Gynecologic: reports: Hysterectomy Exam General: Alert, Oriented x3 Dental: WNL Mouth Opening: Greater than 4 Fingerbreadths Neck Mobility: Normal Mallampati classification: II Respiratory: Lungs clear Cardiovascular: Regular rate Plan Anesthesia Type: Total IV Consent for Procedure(s) Verified and Reviewed: Yes Code Status: Attempt Resuscitation ASA classification: 2-Mild systemic disease Is this case an emergency?: No
[2022-03-01] MEDS ORDERED: PROPOFOL 500 MG/50 ML 500 MG/50 ML VIAL ONE (10:53)
[2022-03-01] MEDS ORDERED: MIDAZOLAM 2 MG/2 ML VIAL ONE (10:55)
[2022-03-01 11:59] VITALS: BP 134/72
--- NOTE | 2022-03-01 13:27 | ANESTHESIA POST OP EVALUATION ---
Anesthesia Post Eval - Post Anesthesia Eval Vitals: Last Vital Signs Temp 36.5 C 03/01/22 11:58 Pulse 58 L 03/01/22 11:58 Resp 14 03/01/22 11:58 BP 134/72 H 03/01/22 11:58 Pulse Ox 100 03/01/22 11:58 O2 Flow Rate 0 03/01/22 09:37 CV Function Including HR & BP: Stable Pain Control: Satisfactory Nausea & Vomiting: Negative Mental Status: Baseline Respiratory Status: Airway Patent Hydration Status: Satisfactory Anesthesia Complications: None
== END 2022-03-01 09:26 | disposition home or self-care (01) ==
LOC: SDS 09:25
PROVIDERS: ATTEND Surgery
DX: Z12.11 Encounter for screening for malignant neoplasm of colon (principal); K64.8 Other hemorrhoids; Z86.010 Personal history of colon polyps; Z80.0 Family history of malignant neoplasm of digestive organs
CPT/HCPCS: 45378; J7120

== ENCOUNTER 2023-10-16 12:44 | Emergency (ER) | payer MEDICARE, OTHER ==
[2023-10-16 13:18] VITALS: O2SAT 98
[2023-10-16 13:37] LABS: BASOPHILS % (AUTO) 0.3 %; EOSINOPHILS # (AUTO) 0.2 10^3/uL (0.0-0.7); EOSINOPHILS % (AUTO) 2.1 %; HCT - HEMATOCRIT 39.1 % (37.0-47.0); LYMPHOCYTES # (AUTO) 2.6 10^3/uL (1.5-3.5); LYMPHOCYTES % (AUTO) 36.9 %; MEAN CORPUSCULAR HEMOGLOBIN 31.6 pg (27.0-31.0); MEAN CORPUSCULAR HGB CONC 33.2 g/dL (32.0-36.0); MEAN CORPUSCULAR VOLUME 95.1 fL (81.0-99.0); MEAN PLATELET VOLUME 9.3 fL (7.9-10.8); MONOCYTES # (AUTO) 0.5 10^3/uL (0.0-1.0); NEUTROPHILS # (AUTO) 3.8 10^3/uL (1.5-6.6); NEUTROPHILS % (AUTO) 53.6 %; PLT - PLATELET COUNT 287 10^3/uL (130-450); RED BLOOD COUNT 4.11 10^6/uL (4.20-5.40); RED CELL DISTRIBUTION WIDTH 13.8 % (12.0-15.0); WHITE BLOOD COUNT 7.2 x10^3/uL (4.8-10.8)
[2023-10-16 13:58] LABS: ALBUMIN 4.4 g/dL (3.2-5.5); ALBUMIN/GLOBULIN RATIO 1.7 (1.0-2.2); BILIRUBIN,TOTAL 0.4 mg/dL (0.2-1.0); CALCIUM 9.7 mg/dL (8.5-10.3); CREATININE 0.8 mg/dL (0.6-1.3); POTASSIUM 3.9 mmol/L (3.5-4.5)
[2023-10-16 14:00] LABS: TROPONIN I HIGH SENSITIVITY 3.3 ng/L (2.3-14.8)
--- NOTE | 2023-10-16 14:21 | XRAY Report ---
PROCEDURE: Chest 1V INDICATIONS: Chest pain TECHNIQUE: One view of the chest was acquired. COMPARISON: None. FINDINGS: Surgical changes and devices: None. Lungs and pleura: No pleural effusions or pneumothorax. Lungs are clear. Mediastinum: Mediastinal contours appear normal. Heart size is normal. Bones and chest wall: No suspicious bony lesions. Overlying soft tissues appear unremarkable. IMPRESSION: No acute cardiopulmonary process. Reviewed by: Maikel Mandel MD on 10/16/2023 1:20 PM AKDT Approved by: Maikel Mandel MD on 10/16/2023 1:20 PM AKDT Station ID: [id number]
--- NOTE | 2023-10-16 17:33 | ED Physician Documentation ---
PD HPI CHEST PAIN - Stated complaint Stated Complaint: SOA,PALPUTATIONS - Chief complaint Chief Complaint: Cardiac - History obtained from History obtained from: Patient, Family - Additional information Additional information: 63-year-old woman has had increased palpitations for the last month. There is really no chest pain with it. It is making her anxious. She was seen at [facility] and diagnosed with PVCs and just had a threat monitoring analyst but they were worse today. She is not on any medications for it. No other heart disease. 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 - Present Medications Home Medications: Ambulatory Orders Medication Instructions Recorded Confirmed Levothyroxine [Synthroid] 25 mcg PO QDAC 03/01/22 03/01/22 Liothyronine [Cytomel] 5 mcg PO QDAC 03/01/22 03/01/22 Losartan [Cozaar] 50 mg PO DAILY 03/01/22 03/01/22 Metoprolol Tartrate [Lopressor] 25 mg PO BID #90 tablet 10/16/23 - Allergies Allergies/Adverse Reactions: Allergies Allergy/AdvReac Type Severity Reaction Status Date / Time Penicillins Allergy Emesis Verified 10/16/23 13:10 - Social History Does the pt smoke?: No Smoking Status: Never smoker Does the pt drink ETOH?: Yes Does the pt have substance abuse?: Yes PD ED PE NORMAL - Vitals Vital signs reviewed: Yes - General General: Alert and oriented X 3, No acute distress - Cardiac Cardiac: RRR (Frequent ectopy), No murmur - Respiratory Respiratory: No respiratory distress, Clear bilaterally - Extremities Extremities: No edema, No calf tenderness / cord - Neuro Neuro: Alert and oriented X 3, Normal speech Results - Vitals Vitals: Vital Signs - 24 hr 10/16/23 12:53 Temperature 37.0 C Heart Rate 105 H Respiratory 17 Rate Blood Pressure 134/74 H O2 Saturation 98 Oxygen O2 Source Room air - EKG (time done) 1301 EKG releavant findings:: EKG personally interpreted by author of this note. Relevant findings are: Rate: Rate (enter#) (87) Rhythm: NSR (With frequent PVCs) [place]: Normal Intervals: Normal [place] Ischemia: Non specific changes. No: ST elevation c/w ischemia, ST depression - Labs Labs: Laboratory Tests 10/16/23 10/16/23 13:26 13:26 WBC 7.2 RBC 4.11 L Hgb 13.0 Hct 39.1 MCV 95.1 MCH 31.6 H MCHC 33.2 RDW 13.8 Plt Count 287 MPV 9.3 Neut # (Auto) 3.8 Lymph # (Auto) 2.6 [place] # (Auto) 0.5 Eos # (Auto) 0.2 Baso # (Auto) 0.0 Absolute Nucleated RBC 0.00 Nucleated RBC % 0.0 Sodium 139 Potassium 3.9 Chloride 107 Carbon Dioxide 27 Anion Gap 5.0 L BUN 17 Creatinine 0.8 Estimated GFR (MDRD) 72 L Glucose 122 H Calcium 9.7 Total Bilirubin 0.4 AST 13 ALT 10 Alkaline Phosphatase 58 Troponin I High Sens 3.3 Total Protein 7.0 Albumin 4.4 Globulin 2.6 Albumin/Globulin Ratio 1.7 Lipase 44 PD Medical Decision Making - ED course ED course: 63-year-old woman with increased symptomatic PVCs. She has a normal CBC, CMP, and troponin. She is interested in starting some beta-blockade and we will go ahead and do that pending follow-up. Departure - Departure Disposition: 01 Home, Self Care Clinical Impression: PVCs (premature ventricular contractions) Condition: Good Record reviewed to determine appropriate education?: Yes Instructions: ED Palpitations Prescriptions: Metoprolol Tartrate [Lopressor] 25 mg PO BID #90 tablet Comments: I sent your prescription electronically to the [facility] pharmacy here in [place]. You can take it sort of as needed, either just on bad days or you can actually up the dose to 50 mg twice a day if you feel like this dose is not sufficient. Follow-up with your doctor at [place]. They may want to consider further evaluation and treatment such as echocardiography. Return if worse.
[2023-10-16] MEDS: METOPROLOL TARTRATE 50 MG TABLET PO STA (17:45)
[2023-10-16 17:52] VITALS: BP 116/80
== END 2023-10-16 17:51 | disposition home or self-care (01) ==
LOC: ED 12:44
DX: I49.3 Ventricular premature depolarization (principal)
CPT/HCPCS: 36415; 71045; 80053; 83690; 84484; 85025; 93005; 99284; A9270

== ENCOUNTER 2023-11-08 10:13 | Emergency (ER) | payer MEDICARE ==
--- NOTE | 2023-11-08 10:42 | ED Physician Documentation ---
PD HPI DYSPNEA - Stated complaint Stated Complaint: NAUSEA,LIGHTHEADED,SOA - Chief complaint Chief Complaint: Cardiac - History obtained from History obtained from: Patient - History of Present Illness Timing - onset: Today, Last night Timing - onset during: Sleep, Rest Timing - details: Intermittant, Waxing and waning (She has had PVCs fairly recently in the past several weeks to a month. Seen in the ER on 10/16/2023 for same with basic blood test done. EKG essentially normal. Started on metoprolol 12.5 mg twice daily. She states this had improved her symptoms quite a bit until overnight last night into today.) Inciting event(s): No: Out of meds, URI Associated symptoms: Palpitations. 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 - Present Medications Home Medications: Ambulatory Orders Medication Instructions Recorded Confirmed Levothyroxine [Synthroid] 25 mcg PO QDAC 03/01/22 03/01/22 Liothyronine [Cytomel] 5 mcg PO QDAC 03/01/22 03/01/22 Losartan [Cozaar] 50 mg PO DAILY 03/01/22 03/01/22 Metoprolol Tartrate [Lopressor] 25 mg PO BID #90 tablet 10/16/23 - Allergies Allergies/Adverse Reactions: Allergies Allergy/AdvReac Type Severity Reaction Status Date / Time Penicillins Allergy Emesis Verified 11/08/23 10:18 - Social History Does the pt smoke?: No Smoking Status: Never smoker Does the pt drink ETOH?: Yes Does the pt have substance abuse?: Yes - Immunizations Immunizations are current?: Yes PD ED PE NORMAL - Vitals Vital signs reviewed: Yes - General General: Alert and oriented X 3, No acute distress, Well developed/nourished - Neck Neck: Supple, no meningeal sign, No adenopathy, Thyroid normal - Cardiac Cardiac: RRR (occasional PVCs on monitor which she statees corresponds to her symtpoms. ), No murmur - Respiratory Respiratory: No respiratory distress, Clear bilaterally - Derm Derm: Normal color, Warm and dry - Extremities Extremities: No edema, No calf tenderness / cord Results - Vitals Vitals: Vital Signs - 24 hr 11/08/23 11/08/23 10:18 11:32 Temperature 36.5 C 36.6 C Heart Rate 58 L 55 L Respiratory 16 16 Rate Blood Pressure 148/84 H 110/79 O2 Saturation 99 97 Oxygen O2 Source Room air - EKG (time done) 10:33 EKG releavant findings:: EKG personally interpreted by author of this note. Relevant findings are: Rate: Rate (enter#) (57) Rhythm: Sinus bradycardia [place]: Normal Intervals: Normal MD QRS: Normal Ischemia: Normal ST segments. No: ST elevation c/w ischemia, ST depression Compare to prior EKG: Unchanged from prior EKG - Labs Labs: Laboratory Tests 11/08/23 11:15 Sodium 138 Potassium 3.9 Chloride 107 Carbon Dioxide 26 Anion Gap 5.0 L BUN 19 Creatinine 0.9 Estimated GFR (MDRD) 63 L Glucose 94 Calcium 9.8 Phosphorus 3.1 TSH 0.82 PD Medical Decision Making - ED course Complexity details: reviewed old records (prior ED visit and lab results. ), reviewed results, considered differential (The patient is having frequent PVCs. She was seen here about 2 weeks ago for similar. Had basic labs of chemistry panel and blood count. Started on metoprolol 12.5 mg twice a day. Instructed to increase if needed based on symptoms. Feeling somewhat lightheaded and dyspnea with frequent ones.), d/w patient ED course: The patient had had basic labs on October 15 with the prior visit. This included electrolytes. The patient does have history of hypothyroidism and is on a supplement. We can add a TSH today and also recheck the potassium. It had been 3.9 on the recent visit. Even though this is in the normal range, she may benefit from being upper normal and so I would suggest a supplement. She had taken an extra dose of the metoprolol this morning as she was feeling more frequent PVCs. They seem to be abating now as she is here in the ER and she is feeling more comfortable. She has not had exertional related chest pain or dyspnea, no recent travel, PERC negative. She had been with some friends last night and had a couple of drinks of alcohol. This may have precipitated some cardiac irritation and therefore more frequent PVCs this morning and overnight. As she is feeling better now, I did not feel more extensive workup was needed. We did add some TSH and a repeat chemistry panel to see interval change. Nothing significantly notable. I would suggest to her to see how she does over the next couple of days and see the frequency of the PVCs. There is typically natural undulation in the amount of them. She can increase to 25 mg on 1 or both doses of her medicine since she had taken an extra 12.5 mg this morning and her heart rate is in the mid to upper 50s and her blood pressure is good. As such she does seem to be able to tolerate a 25 mg dose. Departure - Departure Disposition: Home, Self Care Clinical Impression: PVCs (premature ventricular contractions) Condition: Stable Record reviewed to determine appropriate education?: Yes Instructions: ED Palpitations Follow-Up: SRAVAN MORE DO [Primary Care Provider] - Comments: We had not looked at your TSH on your visit October 15. We did draw it off today. This should result later in the day. I was also rechecking your potassium level. Your potassium level was in the normal range on the previous visit but with extra beats such as PVCs, the tank builder often recommend being mid to upper end of the normal range. As such you could consider a potassium supplement such as potassium gluconate or potassium chloride daily for the next couple of weeks. At this point I would suggest sticking with your current metoprolol dose. Stay well-hydrated. See how you do over the next couple of days with regard to heart rate and blood pressure as well. The frequency of PVCs will vary a lot over time with some days being more than others related to hydration and stimulants or irritants and just "bad luck". If you continue with a higher frequency of PVCs that are bothersome, you could increase your metoprolol dose from the current 12.5 mg twice a day up to 12.5 mg in the morning and 25 mg at night, or even just to increase both doses to 25 mg twice a day. Monitor heart rate and BP twice daily with any dose adjustments to ensure neither are too low at an increased dose (HR less than 50 for example). Follow-up with your primary care. Forms: PCP List Discharge Date/Time: 11/08/23 11:32
[2023-11-08 11:33] VITALS: BP 110/79; O2SAT 97
[2023-11-08 11:33] LABS: CALCIUM 9.8 mg/dL (8.5-10.3); CREATININE 0.9 mg/dL (0.6-1.3); PHOSPHORUS 3.1 mg/dL (2.5-5.0); POTASSIUM 3.9 mmol/L (3.5-4.5)
[2023-11-08 11:49] LABS: THYROID STIMULATING HORMONE 0.82 uIU/mL (0.34-5.60)
== END 2023-11-08 11:32 | disposition home or self-care (01) ==
LOC: ED 10:13
DX: I49.3 Ventricular premature depolarization (principal); E03.9 Hypothyroidism, unspecified
CPT/HCPCS: 36415; 80048; 84100; 84443; 93005; 99284